=== PATIENT | female | born 1935 | race Caucasian/White ===

== ENCOUNTER 2018-05-08 11:08 | Inpatient (IN) ==
[2018-05-08] MEDS ORDERED: Ethanol\\Acetic Acid\\Na Ace\\Ben 1,000 ML IRRIG.SOLN IR ONE (11:12)
[2018-05-08] MEDS ORDERED: Famotidine 20 MG/2 ML VIAL IVP ONE (11:21)
[2018-05-08] MEDS ORDERED: Acetaminophen IV 1,000 MG/100 ML INFUS..BTL IVPB ONE (11:21)
--- NOTE | 2018-05-08 11:21 | History & Physical Report ---
Date of Encounter: 05/08/18 Time of Encounter: 11:20 24 Hour HP Update - Instructions Instructions: If the History and Physical is less than 30 days old and was completed prior to A.M. admission and or procedure and has NOT been updated on calendar day of procedure please complete this update prior to performing procedure. - Update Patient reports changes in Medical Condition: No Changes in examination, assessment, or condition: No Changes in Medication: No Preop tests/diagnostics Reviewed: Yes Surgery Remains Indicated: Yes Consent for Planned Operative Procedure(s) Verified: Yes - Pre-Operative Checklist Preoperative Checklist Indicated: No Prophylactic Antibiotic Ordered: Yes Is VTE Prophylaxis Indicated?: Yes
[2018-05-08] MEDS ORDERED: Ringers Solution, Lactated 1,000 ML IVC SCH ×2 (11:30→15:41)
[2018-05-08] MEDS ORDERED: CeFAZolin Syr 2,000MG/20 ML 2,000 MG/20 ML SYRINGE IVPB ONE ×2 (11:43→12:04)
[2018-05-08] MEDS ORDERED: Famotidine 20 MG/2 ML VIAL ONE (12:04)
[2018-05-08] MEDS ORDERED: Acetaminophen IV 1,000 MG/100 ML INFUS..BTL ONE (12:04)
--- NOTE | 2018-05-08 12:09 | Anesthesia Evaluation PreOp ---
Date of Encounter: 05/08/18 Time of Encounter: 12:10 - Past History Planned Operation: Rt Total Shoulder Cardiac History: HTN, Hyperlipidemia Pulmonary History: Denies Any Significant HX DESIGN CONSULTANT History: Denies Any Significant HX Other Medical History: Diabetes Type II, Other (Osteoarthritis) Anesthesia History: No Prior Anesthetic Complications Alcohol Use: none Drug use: none Medications and Allergies Acetaminophen [Tylenol] 500 mg PO Q6HR PRN #20 tablet 10/26/16 [Rx] Aspirin 10/26/16 [History] Atenolol 10/26/16 [History] Nasal [place] 10/26/16 [History] PredniSONE [Bette] 5 mg PO DAILY 6 Days tablet. 10/26/16 [Rx] Procardia 10/26/16 [History] Allergy/AdvReac Type Severity Reaction Status Date / Time codeine Allergy Nausea Verified 05/05/18 13:48 Penicillins [PCN] Allergy See Verified 05/05/18 13:48 Comments Sulfa (Sulfonamide Allergy See Verified 05/05/18 13:48 Antibiotics) Comments - Meds/Allergy Pre-op Review Medications Reviewed: Yes Allergies Reviewed: Yes Beta Blockers on Current Med List: Yes (Atenolol last night 2100) Anesthesia Results - Labs Laboratory Tests 05/05/18 05/05/18 15:58 15:58 Hgb 13.6 Hct 42.3 Plt Count 209 Sodium 137 Potassium 3.8 BUN 21 Creatinine 0.61 - Imaging EKG: report reviewed (SR) Anesthesia Exam O2 Sat Height 1.6 m Height 1.6 m Weight 60.328 kg Weight 60.328 kg O2 Sat by Pulse Oximetry 96 Vital Signs Temp Pulse Resp BP Pulse Ox 97.7 F 64 18 143/72 96 05/08/18 11:35 05/08/18 11:35 05/08/18 11:35 05/08/18 11:35 05/08/18 11:35 Height: 5'3 Weight: 133 lbs NPO (# of Hours): MN Pain Scale: 0 - HEENT Pupil (Motor): Pupils equal, EOMI Mallampati: III Teeth: Edentulous (no upper dentition) Oral Opening: Less than or equal to 3 - DESIGN CONSULTANT LOC: Oriented DESIGN CONSULTANT Motor: Normal RUE, Normal LUE, Normal RLE, Normal LLE, Normal Face DESIGN CONSULTANT Sensory: Normal: RUE, LUE, RLE, LLE, Face - Cardiac Rhythm: Regular Murmur: None JVD: No Carotid Bruit: No - Pulmonary Breath Sounds: bilateral Clear Respiratory Effort: Symmetrical Anesthesia Assess/Plan ASA Score: 3 (HTN DM Osteoarthritis) Level of consciousness: Cooperative, Oriented Anesthetic Plan: General, Regional Nerve Block Autologous Blood: No Monitoring Plan: Standard Monitors Recovery Plan: PACU (Discussed GA and Brachial Plexus Block,agrees to proceed)
[2018-05-08] MEDS ORDERED: *HR* FentaNYL (PF) 100 MCG/2 ML VIAL ONE (12:14)
[2018-05-08] MEDS ORDERED: *HR* Propofol 200 MG/20 ML VIAL IVP ONE (12:15)
[2018-05-08] MEDS ORDERED: Lidocaine -MPF 2% 2 ML VIAL ONE ×2 (12:16→14:09)
--- NOTE | 2018-05-08 12:17 | Discharge Summary ---
Orders not resulted at time of discharge: Pending orders 05/08/18 11:19 XR post op reverse apex RT [XR] Routine 05/08/18 11:21 US anesthesia pain block [US] Routine Date of Encounter: 05/08/18 Time of Encounter: 16:47 - Discharge Diagnosis (1) Hypertension Priority: Secondary Status: Chronic Qualifiers: Hypertension type: unspecified Qualified Code(s): I10 - Essential (primary) hypertension (2) Hyperlipidemia Priority: Secondary Status: Chronic Qualifiers: Hyperlipidemia type: unspecified Qualified Code(s): E78.5 - Hyperlipidemia, unspecified (3) Type 2 diabetes mellitus Priority: Secondary Status: Chronic Qualifiers: Diabetes mellitus longterm insulin use: unspecified tank terminal gauger insulin use status Diabetes mellitus complication status: without complication Qualified Code(s): E11.9 - Type 2 diabetes mellitus without complications (4) Right rotator cuff tear arthropathy Priority: Primary Status: Chronic (5) Status post reverse total replacement of right shoulder Priority: Primary Status: Acute - Hospital Course Hospital course: Ms. Chanel is a 82 year old female Patient discharged same day from surgery - Time Spent with Patient Total time spent providing and/or coordinating discharge services: - Discharge Medications Prescriptions: New OxyCODONE Immed Rel [Roxicodone 5 MG] 5 mg PO Q6HR PRN 4 Days #14 tablet PRN Reason: Pain Continue Atenolol [Tenormin] 25 mg PO DAILY Memantine HCl 10 mg PO BID NIFEdipine [Nifedipine ER] 30 mg PO DAILY Home Medications: Atenolol [Tenormin] 25 mg PO DAILY 05/08/18 [History] Memantine HCl 10 mg PO BID 05/08/18 [History] NIFEdipine [Nifedipine ER] 30 mg PO DAILY 05/08/18 [History] OxyCODONE Immed Rel [Roxicodone 5 MG] 5 mg PO Q6HR PRN 4 Days #14 tablet 05/08/18 [Rx] Allergies/Adverse Reactions: Allergy/AdvReac Type Severity Reaction Status Date / Time ciprofloxacin [From Cipro] Allergy See Verified 05/08/18 12:26 Comments codeine Allergy Nausea Verified 05/05/18 13:48 levofloxacin [From Levaquin] Allergy See Verified 05/08/18 12:25 Comments Penicillins [PCN] Allergy See Verified 05/05/18 13:48 Comments Sulfa (Sulfonamide Allergy See Verified 05/05/18 13:48 Antibiotics) Comments Primary care physician: Sukhi Parra MD - Patient Status Disposition: Home, Self-Care Condition: Good Functional capacity at discharge: independent ambulation Overall status at discharge: patient is progressing back to baseline - Discharge Instructions Follow Up With: Sukhi Parra MD [Primary Care Provider] -
[2018-05-08] MEDS ORDERED: Clindamycin 900 MG/50 ML 900 MG/50 ML IV.SOLN IVPB ONE ×2 (12:18→12:29)
[2018-05-08] MEDS ORDERED: ROPIVACAINE HCL/PF 0.5% 30 ML VIAL ONE (12:19)
[2018-05-08] MEDS ORDERED: Ondansetron 4 MG/2 ML VIAL ONE (13:20)
[2018-05-08] MEDS ORDERED: Tranexamic Acid 1,000 MG/10 ML VIAL ONE (13:26)
--- NOTE | 2018-05-08 13:40 | Anesthesia Procedures ---
Date of Encounter: 05/08/18 Time of Encounter: 12:30 Procedures: Anesthesia - Nerve Block Procedure Date: 05/08/18 Time: 12:30 Allergies/Adv Reactions: ciprofloxacin [From Cipro] Allergy (Verified 05/08/18 12:26) See Comments codeine Allergy (Verified 05/05/18 13:48) Nausea levofloxacin [From Levaquin] Allergy (Verified 05/08/18 12:25) See Comments Penicillins [PCN] Allergy (Verified 05/05/18 13:48) See Comments Sulfa (Sulfonamide Antibiotics) Allergy (Verified 05/05/18 13:48) See Comments Pre-op Diagnosis: right shoulder rotator cuff arthropathy Surgical Procedure: right total shoulder reverse ball Checklist: Correct Patient Identifier, Correct procedure, History checked Correct side: Right Blood Thinner: No Monitor Applied: EKG, BP, Pulse Oximetry Supplemental Oxygen via Nasal Cannula (L/min): 2 Sedation: Fentanyl (mcg): 50 Indication: Post Op Analgesia Pre-op Neuro Deficits: No Block Type: Supraclavicular Catheter placed: No Sterile Technique: Yes Ultrasound used: Yes Anatomy identified: Yes Visual spread of Local: Yes Neuro Stimulation: No Blood on Needle Aspiration: No Smooth Injection of Local: Yes Pain with Injection of Local: No Prep: Chlorhexadine Needle: 22 x 50 mm Stimuplex Local: Ropivacaine (0.5%) Volume (cc): 20 Number of Attempts: 1 Complications: None/effective block
--- NOTE | 2018-05-08 14:02 | Orthopedic Operative Note ---
Date of procedure: 05/08/18 Pre-op diagnosis: Right shoulder cuff tear arthropathy Post-op diagnosis: same Procedure: Procedure: Total Shoulder Replacment Reverse, right Estimated blood loss: 100 cc Hardware: Metal and polyethylene replacement: Arthrex 24, + +4 , 25 mm screw glenoid baseplate, 4 locking 5.5 screw, 36+4 glenosphere, 8 apex humeral stem, poly insert X Exam Under anesthesia: Full motion no stability Procedural Notes: Irreparable rotator cuff tear Operative procedure: The patient was brought to the operating room and placed on the operating room table. After general anesthesia was administered the operative shoulder was examined. Findings were noted. The patient was placed in the modified beachchair position. All pressure points were padded appropriately. And the head was stabilized in the neutral position. The operative extremity was prepped and draped in the sterile surgical fashion. The patient received IV antibiotics prior to skin incision. A standard deltopectoral approach was made to the operative shoulder. Incision was made to the skin and subcutaneous tissue,hemo stasis was obtained with Bovie cautery. Using careful blunt dissection the cephalic vein was identified and mobilized medially. The deltopectoral interval was developed and the clavipectoral fascia was incised. The subscap was released off the lesser tuberosity and tagged with #2 FiberWire suture subscap was irreparable. The humerus was dislocated patient noted to have irreparable tear supraspinatus tendon, and the humeral cut was made along the anatomic neck. Anterior and posterior Bankart retractors were placed to expose the glenoid. The glenoid guide was seated and the centering hole was made. It was reamed with the appropriate reamer. The 24, +4, 25 mm screw, baseplate was seated and secured with 4 locking 5.5 screw. The baseplate was irrigated and dried and the 36+4 Glenosphere was seated and secured with the Mota taper. The Mota taper was tested and found to be secure, glenosphere fixation was secondarily secured with the central screw. The humerus was redislocated and prepared with the diaphyseal reamers, followed by a broaching process up to the appropriate size 8 apex in the patient's anatomic version. The metaphyseal reamer was then utilized. Trial reduction found the shoulder to be relocatable. Trial components were removed and 8 apex stem was impacted in place in the patient's anatomic version. Trial reduction found the shoulder to be relocatable and stable with the appropriate 3. Trial component was removed and the real implant was seated and secured the shoulder was reduced. The shoulder had excellent motion and excellent stability and no evidence of dislocation. The deep tissue was irrigated with pulse irrigation. The deltopectoral interval was closed with a running #1 PDS suture, subcutaneous tissue was irrigated and closed with 0 PDS suture, the skin was closed with Dermabond. The patient was placed in a sterile dressing, abduction brace and extubated. The patient was then transferred to the recovery room in stable condition. Anesthesia: GETA Surgeon: Ho Cardoso Was there an first assistant present: No Estimated blood loss (cc): 100 Condition: stable Disposition: PACU
--- NOTE | 2018-05-08 14:47 | Anesthesia Evaluation Post Op ---
Date of Encounter: 05/08/18 Time of Encounter: 14:45 - Vital Signs Vital Signs: Vital Signs/O2 Sat/Glucose, Most Current Temp Pulse Resp BP Pulse Ox 05/08/18 14:32 70 16 137/70 97 05/08/18 14:22 97.6 F 69 16 135/68 96 05/08/18 14:12 76 16 147/76 98 05/08/18 14:02 97.3 F L 75 18 162/79 97 05/08/18 12:52 61 15 143/67 99 05/08/18 12:40 66 17 161/71 97 05/08/18 12:31 71 16 181/86 98 05/08/18 12:21 67 16 180/84 97 05/08/18 11:35 97.7 F 64 18 143/72 96 - Lungs Lungs: Clear Ascult./Percussion - Airway Airway: Non-obstructed - Cardiovascular Regular Rate - Mental Status Mental Status: Alert & Oriented, Answers Appropriately - Pain Pain Scale: 0 - Nausea Vomiting Nausea Vomiting: Not Present - Hydration Hydration: Ice chips - Discharge PostOp Status: Transfer Patient to floor
[2018-05-08] MEDS ORDERED: Dextrose 4 GM Chewable Tablets PO PRN ×2 (15:41)
[2018-05-08] MEDS ORDERED: *HR* Dextrose 50 % in Water (Syg) 50 ML SYRINGE IVP PRN (15:41)
[2018-05-08] MEDS ORDERED: Temazepam 15 MG CAPSULE PO PRN (15:41)
[2018-05-08] MEDS ORDERED: D5% in Water 1,000 ML IVC PRN (15:41)
[2018-05-08] MEDS ORDERED: *HR* OxyCODONE Immed Rel 5 MG TABLET PO PRN (15:41)
[2018-05-08] MEDS ORDERED: traMADol 50 MG TABLET PO PRN (15:41)
[2018-05-08] MEDS ORDERED: *HR* OxyCODONE/APAP 5/325 TABLET PO PRN (15:41)
[2018-05-08] MEDS ORDERED: Sennosides 8.6 MG TABLET PO PRN (15:41)
[2018-05-08] MEDS ORDERED: Dextrose Gel 15 GM/37.5 ML TUBE PO PRN ×2 (15:41)
[2018-05-08] MEDS ORDERED: MOM Conc 10 ML UD.LIQ PO PRN (15:41)
[2018-05-08] MEDS ORDERED: Ondansetron 4 MG/2 ML VIAL IVP PRN (15:41)
[2018-05-08] MEDS ORDERED: Clindamycin 900 MG/50 ML 900 MG/50 ML IV.SOLN IVPB SCH (16:00)
[2018-05-08] MEDS ORDERED: Insulin LISPRO 300 UNITS/3 ML VIAL SQ SCH (16:30)
[2018-05-08 17:06] VITALS: BP 129/71
[2018-05-08] MEDS ORDERED: *HR* Enoxaparin 30 MG/0.3 ML SYRINGE SQ SCH ×2 (18:00)
--- NOTE | 2018-05-08 22:26 | Physician Discharge Referral ---
Home Health/Hosp Referral Info Transfer to: Home Health Attending Provider: Walker - Diagnosis (1) Status post reverse total replacement of right shoulder Priority: Primary Status: Acute (2) Right rotator cuff tear arthropathy Priority: Primary Status: Chronic (3) Hyperlipidemia Priority: Secondary Status: Chronic (4) Hypertension Priority: Secondary Status: Chronic (5) Type 2 diabetes mellitus Priority: Secondary Status: Chronic - Respiratory Orders None Smoking Cessation: Smoking cessation has been advised. For more information, call the [place] Tobacco Quit Line at 7-424-JSKN-NOW. - Diet/Nutrition Diet/Nutrition Orders: Regular - Activity Activity Orders: Up ad pete, Ambulate - Services Needed Following services are medically necessary services: Nursing, Home Health Aide, Physical Therapy, Occupational Therapy Home Care Orders: Opsite dressing, leave intact until first post-operative visit. Zipline/Janak in place, plan to remove at post-operative day #14-16. If dressing becomes >50% saturated, contact office, remove dressing and place appropriate dressing in its place. Do not allow for dressing to get wet. Shoulder Precautions x 6 weeks. Apply cold therapy wrap 3-6x/day for 20 minutes at a time. Encourage ambulation throughout the day. Use Incentive spirometer 10x/hour. Elevate affected extremity above heart as tolerated. NWB to affected upper extremity x 6 weeks. Will remove brace at first post-operative appointment. OK to remove during PT/OT and Home exercises. - Transfer Medications Home Medications: Atenolol [Tenormin] 25 mg PO DAILY 05/08/18 [History] Memantine HCl 10 mg PO BID 05/08/18 [History] NIFEdipine [Nifedipine ER] 30 mg PO DAILY 05/08/18 [History] OxyCODONE Immed Rel [Roxicodone 5 MG] 5 mg PO Q6HR PRN 4 Days #14 tablet 05/08/18 [Rx] Allergies/Adverse Reactions: Allergy/AdvReac Type Severity Reaction Status Date / Time ciprofloxacin [From Cipro] Allergy See Verified 05/08/18 12:26 Comments codeine Allergy Nausea Verified 05/05/18 13:48 levofloxacin [From Levaquin] Allergy See Verified 05/08/18 12:25 Comments Penicillins [PCN] Allergy See Verified 05/05/18 13:48 Comments Sulfa (Sulfonamide Allergy See Verified 05/05/18 13:48 Antibiotics) Comments Certification: Further, I certify that my clinical findings support that this patient is homebound (i.e. absences from home require considerable and taxing effort and are for medical reasons or confucianist services or infrequently or short duration when for other reasons) because: Homebound Reason: Post-surgery restriction and or conditions limit ability to leave home Attestation: My signature below is to certify that this patient is under my care and that I, or nurse practitioner, or a physician [id number] assistant navigator working with me, has a [id number] encounter with this patient.
[2018-05-09] MEDS ORDERED: NIFEdipine XL (24 HR) 30 MG TAB.ER.24 PO SCH (09:00)
== END 2018-05-08 18:42 | disposition home or self-care (01) | DRG 483 ==
LOC: SAMDAY 11:08 → 3NENU 15:13
PROVIDERS: ADMIT Orthopaedic Surgery; ATTEND Orthopaedic Surgery

== ENCOUNTER 2018-12-12 18:55 | Inpatient (IN) ==
[2018-12-12] MEDS ORDERED: Aspirin 81 MG TAB.CHEW PO ONE (19:05)
[2018-12-12] MEDS ORDERED: *HR* Heparin 5,000 UNIT/ML VIAL ONE (19:05)
[2018-12-12] MEDS ORDERED: *HR* Heparin 5,000 UNIT/ML VIAL IVP PRN ×2 (19:05)
[2018-12-12] MEDS ORDERED: *HR* Ticagrelor 90 MG TABLET ONE (19:05)
[2018-12-12] MEDS ORDERED: *HR* Ticagrelor 90 MG TABLET PO ONE (19:05)
[2018-12-12] MEDS ORDERED: *HR* Heparin 5,000 UNIT/ML VIAL IVP ONE (19:05)
[2018-12-12] MEDS ORDERED: 0.9 % Sodium Chloride 1,000 ML ONE ×3 (19:06→19:25)
[2018-12-12] MEDS ORDERED: Aspirin 81 MG TAB.CHEW ONE (19:06)
[2018-12-12] MEDS ORDERED: Heparin 25,000 UNIT/250 ML D5W 25,000 UNIT/250 ML IV.SOLN IVC SCH (19:15)
[2018-12-12] MEDS ORDERED: Heparin 1,000 UNITS/500 mL 500 ML ONE (19:26)
[2018-12-12] MEDS ORDERED: ISOVUE-370 200 ML INFUS..BTL ONE (19:26)
[2018-12-12] MEDS ORDERED: *HR* Heparin 10,000 UNIT/10 ML VIAL ONE (19:26)
[2018-12-12] MEDS ORDERED: Nitroglycerin 1,000 MCG/10 ML VIAL IV ONE (19:26)
[2018-12-12 19:36] LABS: Basophils % 0.3 %; Eosinophils % 0.6 %; Hematocrit 41.9 % (35.3-44.9); Hemoglobin 13.7 g/dL (11.5-15.4); Immature Granulocytes % 0.1 % (0-4); Lymphocytes % 28.8 %; Mean Corpuscular HGB Conc 32.7 g/dL (31.6-35.5); Mean Corpuscular Hemoglobin 30.3 pg (28.0-33.3); Mean Corpuscular Volume 92.7 fL (83.0-100.0); Mean Platelet Volume 11.8 fL (9.4-12.4); Monocytes # 0.6 K/mcL (0.0-1.3); Monocytes % 8.8 %; Neutrophils # 4.3 K/mcL (1.6-8.9); Platelet Count 192 K/mcL (140-400); Red Blood Count 4.52 M/mcL (3.82-4.97); Red Cell Distribution Width 13.4 % (11.5-14.5); Segmented Neutrophils % 61.4 %; White Blood Count 6.9 K/mcL (4.3-11.1)
[2018-12-12 19:43] LABS: INR 1.1; Prothrombin Time 12.1 Seconds (9.4-12.1)
[2018-12-12 19:45] LABS: Activated Partial Thrombo Time 88.9 Seconds (26.0-36.0)
[2018-12-12] MEDS ORDERED: *HR* Midazolam HCl 2 MG/2 ML VIAL ONE (19:46)
[2018-12-12] MEDS ORDERED: *HR* FentaNYL (PF) 100 MCG/2 ML VIAL ONE (19:46)
[2018-12-12 20:01] LABS: BUN/Creatinine Ratio 26 (6-26); Blood Urea Nitrogen 15 mg/dL (8-23); Calcium 9.9 mg/dL (8.6-10.3); Carbon Dioxide 26 mEq/L (23-29); Chloride 104 mEq/L (98-107); Glucose 143 mg/dL (70-105); Magnesium 2.2 mg/dL (1.6-2.6); Osmolality,Calculated 287 (280-300); Potassium 3.8 mEq/L (3.5-5.1); Sodium 137 mEq/L (136-145); eGFR For African Americans > 60 (> 60); eGFR For Non-African Americans > 60 (> 60)
[2018-12-12 20:07] LABS: Troponin I 1.13 ng/mL (< 0.04)
[2018-12-12] MEDS ORDERED: *HR* Adenosine 6 MG/2 ML VIAL IVP ONE (20:09)
[2018-12-12] MEDS ORDERED: Ondansetron 4 MG/2 ML VIAL IVP PRN (21:14)
[2018-12-12] MEDS ORDERED: Morphine Sulfate 2 MG/ML SYRINGE IVP PRN (21:14)
[2018-12-13 06:17] LABS: Basophils % 0.3 %; Eosinophils % 0.1 %; Hematocrit 39.7 % (35.3-44.9); Hemoglobin 12.8 g/dL (11.5-15.4); Immature Granulocytes % 0.3 % (0-4); Lymphocytes % 14.4 %; Mean Corpuscular HGB Conc 32.2 g/dL (31.6-35.5); Mean Corpuscular Hemoglobin 29.4 pg (28.0-33.3); Mean Corpuscular Volume 91.3 fL (83.0-100.0); Mean Platelet Volume 11.2 fL (9.4-12.4); Monocytes # 0.7 K/mcL (0.0-1.3); Monocytes % 9.9 %; Neutrophils # 5.2 K/mcL (1.6-8.9); Platelet Count 190 K/mcL (140-400); Red Blood Count 4.35 M/mcL (3.82-4.97); Red Cell Distribution Width 13.4 % (11.5-14.5); White Blood Count 6.9 K/mcL (4.3-11.1)
[2018-12-13 06:44] LABS: Alanine Aminotransferase 15 Units/L (7-52); Albumin 3.8 g/dL (3.5-5.7); Albumin/Globulin Ratio 1.5 (1.1-2.2); Alkaline Phosphatase 94 Units/L (34-104); Aspartate Amino Transferase 76 Units/L (13-39); BUN/Creatinine Ratio 20 (6-26); Bilirubin,Direct 0.1 mg/dL (0.0-0.2); Bilirubin,Indirect 0.3 mg/dL (0.0-1.2); Bilirubin,Total 0.4 mg/dL (0.3-1.0); Blood Urea Nitrogen 11 mg/dL (8-23); Calcium 9.3 mg/dL (8.6-10.3); Carbon Dioxide 25 mEq/L (23-29); Chloride 105 mEq/L (98-107); Chol/HDL Ratio 4.2 (0-4.9); Cholesterol 220 mg/dL (< 200); Globulin 2.6 g/dL (2.4-3.5); Glucose 131 mg/dL (70-105); HDL Cholesterol 52 mg/dL (40-59); LDL Cholesterol,Calculated 146 mg/dL (0-99); Magnesium 2.1 mg/dL (1.6-2.6); Osmolality,Calculated 285 (280-300); Potassium 3.6 mEq/L (3.5-5.1); Sodium 137 mEq/L (136-145); Total Protein 6.4 g/dL (6.4-8.9); Triglycerides 112 mg/dL (< 150); Troponin I 13.16 ng/mL (< 0.04); eGFR For African Americans > 60 (> 60); eGFR For Non-African Americans > 60 (> 60)
[2018-12-13] MEDS ORDERED: *HR* Ticagrelor 90 MG TABLET PO SCH (09:00)
[2018-12-13] MEDS ORDERED: Aspirin 81 MG TAB.CHEW PO SCH (09:00)
[2018-12-13] MEDS ORDERED: Morphine Sulfate 2 MG/ML SYRINGE IVP PRN (09:35)
[2018-12-13] MEDS ORDERED: Ondansetron 4 MG/2 ML VIAL IVP PRN (09:35)
[2018-12-13] MEDS ORDERED: Perflutren Lipid Microsphere 1.3 ML in 0.9 % Sodium Chloride 8.7 ML IVP ONE (09:41)
[2018-12-13] MEDS: *HR* Enoxaparin 40 MG/0.4 ML SYRINGE SQ SCH (13:35)
[2018-12-13] MEDS: *HR* Ticagrelor 90 MG TABLET PO SCH (21:18)
[2018-12-14 01:16] LABS: Basophils % 0.3 %; Eosinophils # 0.1 K/mcL (0.0-0.6); Eosinophils % 0.8 %; Hematocrit 35.3 % (35.3-44.9); Hemoglobin 11.6 g/dL (11.5-15.4); Immature Granulocytes % 0.2 % (0-4); Lymphocytes # 1.5 K/mcL (0.6-4.6); Lymphocytes % 22.8 %; Mean Corpuscular HGB Conc 32.9 g/dL (31.6-35.5); Mean Corpuscular Hemoglobin 30.1 pg (28.0-33.3); Mean Corpuscular Volume 91.7 fL (83.0-100.0); Mean Platelet Volume 11.7 fL (9.4-12.4); Monocytes # 0.9 K/mcL (0.0-1.3); Monocytes % 14.2 %; Platelet Count 161 K/mcL (140-400); Red Blood Count 3.85 M/mcL (3.82-4.97); Red Cell Distribution Width 13.8 % (11.5-14.5); Segmented Neutrophils % 61.7 %; White Blood Count 6.5 K/mcL (4.3-11.1)
[2018-12-14 05:19] LABS: BUN/Creatinine Ratio 22 (6-26); Blood Urea Nitrogen 14 mg/dL (8-23); Calcium 8.8 mg/dL (8.6-10.3); Carbon Dioxide 23 mEq/L (23-29); Chloride 105 mEq/L (98-107); Glucose 132 mg/dL (70-105); Osmolality,Calculated 286 (280-300); Potassium 3.5 mEq/L (3.5-5.1); Sodium 137 mEq/L (136-145); eGFR For African Americans > 60 (> 60); eGFR For Non-African Americans > 60 (> 60)
[2018-12-14] MEDS: *HR* Enoxaparin 40 MG/0.4 ML SYRINGE SQ SCH (05:23)
[2018-12-14] MEDS: Aspirin 81 MG TAB.CHEW PO SCH (07:49)
[2018-12-14] MEDS: *HR* Ticagrelor 90 MG TABLET PO SCH ×2 (07:49→19:48)
[2018-12-15] MEDS: *HR* Enoxaparin 40 MG/0.4 ML SYRINGE SQ SCH (05:14)
[2018-12-15] MEDS: *HR* Ticagrelor 90 MG TABLET PO SCH ×2 (07:32→21:43)
[2018-12-15] MEDS: Aspirin 81 MG TAB.CHEW PO SCH (07:32)
[2018-12-15 12:53] LABS: Basophils % 0.2 %; Eosinophils # 0.1 K/mcL (0.0-0.6); Eosinophils % 1.3 %; Hematocrit 41.5 % (35.3-44.9); Immature Granulocytes % 0.3 % (0-4); Lymphocytes # 1.4 K/mcL (0.6-4.6); Lymphocytes % 21.2 %; Mean Corpuscular HGB Conc 31.8 g/dL (31.6-35.5); Mean Corpuscular Hemoglobin 29.3 pg (28.0-33.3); Mean Platelet Volume 11.2 fL (9.4-12.4); Monocytes # 0.9 K/mcL (0.0-1.3); Monocytes % 14.3 %; Platelet Count 179 K/mcL (140-400); Red Blood Count 4.51 M/mcL (3.82-4.97); Red Cell Distribution Width 13.8 % (11.5-14.5); Segmented Neutrophils % 62.7 %; White Blood Count 6.4 K/mcL (4.3-11.1)
[2018-12-15 12:56] LABS: Hemoglobin 13.2 g/dL (11.5-15.4)
[2018-12-16] MEDS: *HR* Enoxaparin 40 MG/0.4 ML SYRINGE SQ SCH (05:37)
[2018-12-16] MEDS: *HR* Ticagrelor 90 MG TABLET PO SCH (08:04)
[2018-12-16] MEDS: Aspirin 81 MG TAB.CHEW PO SCH (08:04)
[2018-12-16 11:02] VITALS: BP 123/61
[2018-12-16] MEDS ORDERED: FLU Vac QV 19-20 (6Month+)/PF 0.5 ML SYRINGE IM ONE (14:05)
== END 2018-12-16 15:39 | disposition home or self-care (01) | DRG 247 ==
LOC: EMEROOARM 18:55 → ICNU 19:37 → 2NNU 12-13 14:16
PROVIDERS: ADMIT Internal Medicine Interventional Cardiology; ATTEND Internal Medicine Interventional Cardiology

== ENCOUNTER 2019-01-21 16:06 | Observation (INO) ==
[2019-01-21 16:37] LABS: Basophils % 0.1 %; Eosinophils % 0.4 %; Hematocrit 43.6 % (35.3-44.9); Hemoglobin 14.3 g/dL (11.5-15.4); Immature Granulocytes % 0.3 % (0-4); Lymphocytes # 0.7 K/mcL (0.6-4.6); Lymphocytes % 9.7 %; Mean Corpuscular HGB Conc 32.8 g/dL (31.6-35.5); Mean Corpuscular Hemoglobin 29.5 pg (28.0-33.3); Mean Corpuscular Volume 90.1 fL (83.0-100.0); Mean Platelet Volume 11.3 fL (9.4-12.4); Monocytes # 0.6 K/mcL (0.0-1.3); Monocytes % 7.8 %; Platelet Count 195 K/mcL (140-400); Red Blood Count 4.84 M/mcL (3.82-4.97); Red Cell Distribution Width 13.7 % (11.5-14.5); Segmented Neutrophils % 81.7 %; White Blood Count 7.4 K/mcL (4.3-11.1)
[2019-01-21 16:58] LABS: BUN/Creatinine Ratio 19 (6-26); Blood Urea Nitrogen 11 mg/dL (8-23); Calcium 9.6 mg/dL (8.6-10.3); Carbon Dioxide 26 mEq/L (23-29); Chloride 103 mEq/L (98-107); Glucose 122 mg/dL (70-105); Osmolality,Calculated 289 (280-300); Potassium 3.9 mEq/L (3.5-5.1); Sodium 139 mEq/L (136-145); eGFR For African Americans > 60 (> 60); eGFR For Non-African Americans > 60 (> 60)
[2019-01-21 16:59] LABS: Troponin I < 0.03 ng/mL (< 0.04)
[2019-01-21] MEDS ORDERED: Aspirin 325 MG TABLET PO ONE (17:11)
[2019-01-21] MEDS ORDERED: Naloxone 0.4 MG/ML INJ IVP PRN (18:01)
[2019-01-21] MEDS ORDERED: *HR* Dextrose 50 % in Water (Syg) 50 ML SYRINGE IVP PRN (18:16)
[2019-01-21] MEDS ORDERED: Dextrose Gel 15 GM/37.5 ML TUBE PO PRN ×2 (18:16)
[2019-01-21] MEDS ORDERED: D5% in Water 1,000 ML IVC PRN (18:16)
[2019-01-21] MEDS: *HR* Heparin 5,000 UNIT/ML VIAL SQ SCH (22:06)
[2019-01-22] MEDS ORDERED: Ondansetron 4 MG/2 ML VIAL IVP ONE (00:32)
[2019-01-22] MEDS: *HR* Heparin 5,000 UNIT/ML VIAL SQ SCH ×3 (05:40→21:25)
[2019-01-22 06:23] LABS: Basophils % 0.2 %; Eosinophils % 0.6 %; Hematocrit 39.8 % (35.3-44.9); Immature Granulocytes % 0.4 % (0-4); Lymphocytes # 0.6 K/mcL (0.6-4.6); Lymphocytes % 12.7 %; Mean Corpuscular HGB Conc 31.9 g/dL (31.6-35.5); Mean Corpuscular Hemoglobin 29.6 pg (28.0-33.3); Mean Corpuscular Volume 92.8 fL (83.0-100.0); Mean Platelet Volume 11.6 fL (9.4-12.4); Monocytes # 0.6 K/mcL (0.0-1.3); Monocytes % 10.9 %; Neutrophils # 3.8 K/mcL (1.6-8.9); Platelet Count 165 K/mcL (140-400); Red Blood Count 4.29 M/mcL (3.82-4.97); Red Cell Distribution Width 13.9 % (11.5-14.5); Segmented Neutrophils % 75.2 %
[2019-01-22 06:38] LABS: BUN/Creatinine Ratio 19 (6-26); Blood Urea Nitrogen 11 mg/dL (8-23); Calcium 9.2 mg/dL (8.6-10.3); Carbon Dioxide 25 mEq/L (23-29); Chloride 103 mEq/L (98-107); Glucose 138 mg/dL (70-105); Hemoglobin 12.7 g/dL (11.5-15.4); Osmolality,Calculated 288 (280-300); Potassium 3.4 mEq/L (3.5-5.1); Sodium 138 mEq/L (136-145); eGFR For African Americans > 60 (> 60); eGFR For Non-African Americans > 60 (> 60)
[2019-01-22] MEDS: Insulin LISPRO 300 UNITS/3 ML VIAL SQ SCH ×3 (07:45→17:19)
[2019-01-22] MEDS ORDERED: Perflutren Lipid Microsphere 1.3 ML in 0.9 % Sodium Chloride 8.7 ML IVP ONE (19:23)
[2019-01-22] MEDS ORDERED: traZODone 50 MG TABLET PO SCH (21:00)
[2019-01-22] MEDS: *HR* Ticagrelor 90 MG TABLET PO SCH (21:25)
[2019-01-23 05:04] LABS: Basophils % 0.2 %; Eosinophils # 0.1 K/mcL (0.0-0.6); Eosinophils % 2.4 %; Hematocrit 38.4 % (35.3-44.9); Hemoglobin 12.8 g/dL (11.5-15.4); Immature Granulocytes % 0.2 % (0-4); Lymphocytes # 1.3 K/mcL (0.6-4.6); Lymphocytes % 28.7 %; Mean Corpuscular HGB Conc 33.3 g/dL (31.6-35.5); Mean Corpuscular Hemoglobin 29.8 pg (28.0-33.3); Mean Corpuscular Volume 89.3 fL (83.0-100.0); Mean Platelet Volume 11.2 fL (9.4-12.4); Monocytes # 0.7 K/mcL (0.0-1.3); Monocytes % 15.1 %; Neutrophils # 2.4 K/mcL (1.6-8.9); Platelet Count 162 K/mcL (140-400); Segmented Neutrophils % 53.4 %; White Blood Count 4.5 K/mcL (4.3-11.1)
[2019-01-23] MEDS: *HR* Heparin 5,000 UNIT/ML VIAL SQ SCH (05:05)
[2019-01-23 05:26] LABS: BUN/Creatinine Ratio 18 (6-26); Blood Urea Nitrogen 10 mg/dL (8-23); Calcium 9.1 mg/dL (8.6-10.3); Carbon Dioxide 26 mEq/L (23-29); Chloride 105 mEq/L (98-107); Glucose 129 mg/dL (70-105); Osmolality,Calculated 285 (280-300); Potassium 3.6 mEq/L (3.5-5.1); Sodium 137 mEq/L (136-145); eGFR For African Americans > 60 (> 60); eGFR For Non-African Americans > 60 (> 60)
[2019-01-23] MEDS: Insulin LISPRO 300 UNITS/3 ML VIAL SQ SCH ×2 (07:59→11:12)
[2019-01-23] MEDS: *HR* Ticagrelor 90 MG TABLET PO SCH (08:34)
[2019-01-23] MEDS ORDERED: Aspirin Enteric Coated 81 MG Tablet PO SCH (09:00)
[2019-01-23] MEDS ORDERED: Multivit/Ca/Min/Fe/FA 1 TAB TABLET PO SCH (09:00)
[2019-01-23 11:03] VITALS: BP 132/75
== END 2019-01-23 14:03 | disposition home health service (06) ==
LOC: 2ANU 16:06 → EMEROOARM 16:06 → 2ANU 19:55
PROVIDERS: ADMIT Internal Medicine; ATTEND Internal Medicine

== ENCOUNTER 2019-03-20 15:18 | Observation (INO) ==
[2019-03-20 16:21] LABS: Basophils % 0.3 %; Eosinophils # 0.1 K/mcL (0.0-0.6); Eosinophils % 1.2 %; Hematocrit 42.6 % (35.3-44.9); Hemoglobin 13.8 g/dL (11.5-15.4); Immature Granulocytes % 0.3 % (0-4); Lymphocytes # 1.7 K/mcL (0.6-4.6); Lymphocytes % 29.6 %; Mean Corpuscular HGB Conc 32.4 g/dL (31.6-35.5); Mean Corpuscular Hemoglobin 29.3 pg (28.0-33.3); Mean Corpuscular Volume 90.4 fL (83.0-100.0); Mean Platelet Volume 11.3 fL (9.4-12.4); Monocytes # 0.6 K/mcL (0.0-1.3); Monocytes % 10.8 %; Neutrophils # 3.4 K/mcL (1.6-8.9); Platelet Count 199 K/mcL (140-400); Red Blood Count 4.71 M/mcL (3.82-4.97); Segmented Neutrophils % 57.8 %; White Blood Count 5.8 K/mcL (4.3-11.1)
[2019-03-20 16:30] LABS: INR 1.1; Prothrombin Time 12.1 Seconds (9.4-12.1)
[2019-03-20 16:45] LABS: Alanine Aminotransferase 28 Units/L (7-52); Albumin 4.2 g/dL (3.5-5.7); Albumin/Globulin Ratio 1.4 (1.1-2.2); Alkaline Phosphatase 153 Units/L (34-104); Aspartate Amino Transferase 20 Units/L (13-39); Bilirubin,Total 0.5 mg/dL (0.3-1.0); Blood Urea Nitrogen 12 mg/dL (8-23); Carbon Dioxide 28 mEq/L (23-29); Chloride 103 mEq/L (98-107); Globulin 2.9 g/dL (2.4-3.5); Glucose 113 mg/dL (70-105); Osmolality,Calculated 287 (280-300); Sodium 138 mEq/L (136-145); Total Protein 7.1 g/dL (6.4-8.9); Troponin I < 0.03 ng/mL (< 0.04)
[2019-03-20] MEDS ORDERED: Aspirin 81 MG TAB.CHEW PO STA (16:54)
[2019-03-20] MEDS ORDERED: Naloxone 0.4 MG/ML INJ IVP PRN (18:21)
[2019-03-20 19:10] LABS: BUN/Creatinine Ratio 20 (6-26); eGFR For African Americans > 60 (> 60); eGFR For Non-African Americans > 60 (> 60)
[2019-03-20] MEDS: traZODone 50 MG TABLET PO PRN (23:02)
[2019-03-20] MEDS: *HR* Ticagrelor 90 MG TABLET PO SCH (23:03)
[2019-03-21] MEDS: Aspirin Enteric Coated 81 MG Tablet PO SCH (07:44)
[2019-03-21] MEDS: *HR* Ticagrelor 90 MG TABLET PO SCH (07:44)
[2019-03-21] MEDS ORDERED: Nitroglycerin 0.4 MG TAB.SUBL SL PRN (17:39)
[2019-03-21] MEDS: *HR* Heparin 5,000 UNIT/ML VIAL SQ SCH (18:41)
[2019-03-21] MEDS: traZODone 50 MG TABLET PO PRN (20:21)
[2019-03-22] MEDS: *HR* Heparin 5,000 UNIT/ML VIAL SQ SCH (04:46)
[2019-03-22] MEDS ORDERED: Regadenoson 0.4 MG/5 ML SYRINGE IVP ONE (07:24)
[2019-03-22] MEDS ORDERED: Lisinopril 20 MG TABLET PO SCH (09:00)
[2019-03-22 10:42] VITALS: BP 136/71
[2019-03-22] MEDS: Aspirin Enteric Coated 81 MG Tablet PO SCH (10:42)
[2019-03-22] MEDS ORDERED: Isosorbide MONOnitrate (24 HR) 30 MG TAB.ER.24H PO SCH (13:05)
[2019-03-22] MEDS ORDERED: amLODIPine 5 MG TABLET PO SCH (14:00)
[2019-03-23 09:12] LABS: Estimated Average Glucose 154 mg/dl
== END 2019-03-22 14:45 | disposition home or self-care (01) ==
LOC: EMEROOARM 15:18 → 3BNU 15:18 → SUATTDRO 20:49 → 3BNU 22:50
PROVIDERS: ADMIT Internal Medicine; ATTEND Internal Medicine